=== PATIENT | male | born 1945 | race Caucasian/White ===

== ENCOUNTER 2018-12-11 14:33 | Outpatient (CLI) | payer OTHER ==
[2018-12-11 15:53] LABS: BASOPHILS # (AUTO) 0.04 x10^3/uL (0-0.1); BASOPHILS % (AUTO) 1 % (0-1); EOSINOPHILS # (AUTO) 0.11 x10^3/uL (0-0.4); EOSINOPHILS % (AUTO) 2 % (1-7); LYMPHOCYTES # (AUTO) 0.88 x10^3/uL (1-3.4); LYMPHOCYTES % (AUTO) 14 % (22-44); MD NO; MEAN CORPUSCULAR HEMOGLOBIN 34.2 pg (27.5-34.5); MEAN CORPUSCULAR HGB CONC 33.4 g/dL (33.2-36.2); MEAN CORPUSCULAR VOLUME 102.3 fL (81-97); MEAN PLATELET VOLUME 7.3 fL (7.4-10.4); MONOCYTES # (AUTO) 0.54 x10^3/uL (0.2-0.8); MONOCYTES % (AUTO) 9 % (2-9); NEUTROPHILS % (AUTO) 75 % (42-75); PLATELET COUNT 221 x10^3/uL (130-400); RED BLOOD COUNT 4.44 x10^6/uL (4.38-5.82); RED CELL DISTRIBUTION WIDTH 14.1 % (9.4-14.8)
[2018-12-11 16:03] LABS: ALBUMIN 4.3 g/dL (3.4-5.0); ANION GAP 9 mmol/L (5-15); CHLORIDE 106 mmol/L (98-107)
[2018-12-11 16:08] LABS: ALANINE AMINOTRANSFERASE 38 U/L (12-78); ALKALINE PHOSPHATASE 69 U/L (45-117); BILIRUBIN,TOTAL 0.5 mg/dL (0.2-1.0); CREATININE 1.38 mg/dL (0.7-1.3); TOTAL PROTEIN 7.7 g/dL (6.4-8.2)
[2018-12-11 16:32] LABS: INTERNATIONAL NORMALIZED RATIO 0.94 (0.93-1.1); PROTHROMBIN TIME 9.9 Seconds (9.6-11.5)
[2018-12-12] MEDS ORDERED: HYDR12.517 PO (06:31)
[2018-12-12] MEDS ORDERED: RAMI2.5C2 PO (06:31)
[2018-12-12] MEDS ORDERED: MULT1TAB60 PO (06:31)
[2018-12-12] MEDS ORDERED: ROSU5TAB PO (06:31)
== END 2018-12-11 23:59 | disposition home or self-care (01) ==
LOC: STAR 14:33
PROVIDERS: ATTEND Orthopaedic Surgery
DX: Z01.818 Encounter for other preprocedural examination (principal); M25.551 Pain in right hip; R94.31 Abnormal electrocardiogram [ECG] [EKG]
CPT/HCPCS: 36415; 80053; 83036; 85025; 85610; 85730; 87081; 93005

== ENCOUNTER 2018-12-18 05:17 | Inpatient (IN) | payer OTHER, MEDICARE ==
[~2018-12-18] VITALS: Ht 182.9 cm; Wt 84.0 kg
[~2018-12-18 05:17] MED LIST: HYDR12.517 PO; MULT1TAB60 PO; RAMI2.5C2 PO; ROSU5TAB PO
[2018-12-18] MEDS ORDERED: LACTATED RINGERS 1,000 ML IV SCH (05:58)
[2018-12-18] MEDS ORDERED: HYDR-3240 PO (05:58)
[2018-12-18] MEDS ORDERED: GABAPENTIN 300 MG CAPSULE PO ONE (06:00)
[2018-12-18] MEDS ORDERED: ACETAMINOPHEN 500 MG TABLET PO ONE (06:00)
[2018-12-18] MEDS ORDERED: SODIUM CHLORIDE 0.9% 50 ML ONE (06:29)
[2018-12-18] MEDS ORDERED: TRANEXAMIC ACID 100 MG/ML, 10ML ONE ×2 (06:29)
[2018-12-18] MEDS ORDERED: ROPIvacaine/PF 0.5%, 30 ML ONE (06:29)
[2018-12-18] MEDS ORDERED: KETOROLAC 60 MG/2 ML ONE (06:29)
[2018-12-18] MEDS ORDERED: VANCOMYCIN 1,000 MG ONE (06:29)
[2018-12-18] MEDS ORDERED: EPINEPHRINE 1 MG/ML, 1ML ONE (06:30)
[2018-12-18] MEDS ORDERED: KETAMINE 10 MG/ML, 20ML ONE (06:35)
[2018-12-18] MEDS ORDERED: MAGNESIUM SULFATE 1 GM/2 ML ONE (06:35)
[2018-12-18] MEDS ORDERED: LIDOCAINE 1%, 20ML ONE (06:36)
[2018-12-18] MEDS ORDERED: FENTANYL PF 250 MCG/5ML ONE ×2 (06:39→08:31)
[2018-12-18] MEDS ORDERED: DEXAMETHASONE 4 MG/ML, 1ML ONE ×2 (06:39→08:31)
[2018-12-18] MEDS ORDERED: MIDAZOLAM 1 MG/ML, 2ML ONE ×2 (06:39→08:31)
[2018-12-18] MEDS ORDERED: LIDOCAINE 2% 100MG/5ML SYRINGE ONE (06:39)
[2018-12-18] MEDS ORDERED: ROCURONIUM 10MG/ML,5ML ONE ×2 (06:39→08:31)
[2018-12-18] MEDS ORDERED: GLYCOPYRROLATE 0.2MG/1ML, 5ML ONE ×2 (06:39→08:31)
[2018-12-18] MEDS ORDERED: NS + 20MEQ KCL 1,000 ML IV SCH (06:41)
[2018-12-18] MEDS ORDERED: METOPROLOL 1 MG/ML, 5ML ONE (06:41)
[2018-12-18] MEDS ORDERED: PHENYLEPHRINE 10 MG/ML ONE (06:46)
[2018-12-18] MEDS ORDERED: ZOLPIDEM 5MG TABLET PO PRN (07:00)
[2018-12-18] MEDS ORDERED: ONDANSETRON 4 MG TABLET PO PRN (07:00)
[2018-12-18] MEDS ORDERED: DIPHENHYDRAMINE 50 MG CAPSULE PO PRN (07:00)
[2018-12-18] MEDS ORDERED: HYDROcodone/APAP 5/325 TABLET PO PRN (07:00)
[2018-12-18] MEDS ORDERED: SCOPOLAMINE PATCH, 1.5MG PATCH.TD72 TD ONE (07:00)
[2018-12-18] MEDS ORDERED: LABETALOL 5MG/ML, 20ML IV PRN (07:00)
[2018-12-18] MEDS ORDERED: MIDAZOLAM 1 MG/ML, 2ML IV PRN (07:00)
[2018-12-18] MEDS ORDERED: OXYcodone 5 MG/5 ML ORAL.SOL UDC PO PRN (07:00)
[2018-12-18] MEDS ORDERED: METOCLOPRAMIDE 5 MG/ML, 2ML IV PRN (07:00)
[2018-12-18] MEDS ORDERED: OXYcodone IR 5MG TABLET PO PRN (07:00)
[2018-12-18] MEDS ORDERED: SENNA/DOCUSATE TABLET PO PRN (07:00)
[2018-12-18] MEDS ORDERED: ONDANSETRON 2MG/ML, 2ML IVPush PRN (07:00)
[2018-12-18] MEDS ORDERED: KETOROLAC 30 MG/1 ML IV PRN (07:00)
[2018-12-18] MEDS ORDERED: HYDROcodone/APAP 7.5-325MG/15ML UDC PO PRN (07:00)
[2018-12-18] MEDS ORDERED: BISACODYL 10 MG SUPP PR PRN (07:00)
[2018-12-18] MEDS ORDERED: MEPERIDINE/PF 25MG/0.5ML IVPush PRN (07:00)
[2018-12-18] MEDS ORDERED: HYDROmorphone 1 MG/ML, 1ML INJ IV PRN (07:00)
[2018-12-18] MEDS ORDERED: MAGNESIUM HYDROXIDE 8%, 30ML UDC PO PRN (07:00)
[2018-12-18] MEDS ORDERED: ACETAMINOPHEN 650 MG/20.3 ML UDC PO PRN (07:00)
[2018-12-18] MEDS ORDERED: ONDANSETRON 2MG/ML, 2ML IV PRN (07:00)
[2018-12-18] MEDS ORDERED: PROPOFOL 10 MG/ML, 20ML ONE (08:31)
[2018-12-18] MEDS ORDERED: FENTANYL PF 100 MCG/2ML ONE (08:35)
[2018-12-18] MEDS: FENTANYL PF 100 MCG/2ML IV PRN ×3 (08:39→08:50)
[2018-12-18] MEDS ORDERED: DOCUSATE 100 MG CAPSULE PO SCH (09:00)
[2018-12-18] MEDS ORDERED: HYDROCHLOROTHIAZIDE 12.5 MG CAPSULE PO SCH (09:00)
[2018-12-18] MEDS ORDERED: RAMIPRIL 2.5 MG CAPSULE PO SCH (09:00)
[2018-12-18 09:57] VITALS: BP 134/77
[2018-12-18] MEDS ORDERED: CEFAZOLIN PMX 2GM/50ML 50 ML IVPB SCH (10:00)
[2018-12-18] MEDS ORDERED: [UNRECOGNIZED DRUG - REMARK] MC SCH (10:00)
[2018-12-18] MEDS ORDERED: [UNRECOGNIZED DRUG - REMARK] MC SCH (10:00)
[2018-12-18 15:36] VITALS: BP 122/74
[2018-12-18] MEDS ORDERED: ASPIRIN 81 MG TABLET EC PO SCH (18:00)
[2018-12-18] MEDS ORDERED: ROSUVASTATIN CALCIUM PO SCH (21:00)
[2018-12-19] MEDS ORDERED: DEXAMETHASONE 4 MG/ML, 1ML IVPush SCH (06:00)
== END 2018-12-18 15:39 | disposition home or self-care (01) | DRG 470 ==
LOC: ORIP 05:17 → 4NOR 09:24 → DCLOUNGE 15:30
PROVIDERS: ADMIT Orthopaedic Surgery; ATTEND Orthopaedic Surgery
PROC: 0SR906A Replacement of Right Hip Joint with Oxidized Zirconium on Polyethylene Synthetic Substitute, Uncemented, Open Approach (ICD-10-PCS; principal; 2018-12-18 07:00)
DX: M16.11 Unilateral primary osteoarthritis, right hip (principal); I10 Essential (primary) hypertension
CPT/HCPCS: 72170; 73501; 76000; J3490; C1713; J0171; J0690; J1100; J1885; J2250; J2704; J2795; J3010; J3370; J3475; C1776; J2370; J7120

== ENCOUNTER → 2019-06-14 | Outpatient (CLI) | payer MEDICARE, OTHER ==
[~2019-06-14] MED LIST changes: +ASPI-496 PO; +HYDR-3240 PO; +RAMI10CA59 PO; +ZOLP10TA PO
[2019-06-14 09:52] LABS: BASOPHILS # (AUTO) 0.02 x10^3/uL (0-0.1); BASOPHILS % (AUTO) 1 % (0-1); EOSINOPHILS % (AUTO) 2 % (1-7); LYMPHOCYTES # (AUTO) 0.81 x10^3/uL (1-3.4); LYMPHOCYTES % (AUTO) 16 % (22-44); MD NO; MEAN CORPUSCULAR HEMOGLOBIN 33.4 pg (27.5-34.5); MEAN CORPUSCULAR HGB CONC 33.5 g/dL (33.2-36.2); MEAN CORPUSCULAR VOLUME 99.6 fL (81-97); MEAN PLATELET VOLUME 7.1 fL (7.4-10.4); MONOCYTES % (AUTO) 10 % (2-9); NEUTROPHILS % (AUTO) 71 % (42-75); PLATELET COUNT 260 x10^3/uL (130-400); RED BLOOD COUNT 4.43 x10^6/uL (4.38-5.82); RED CELL DISTRIBUTION WIDTH 14.5 % (9.4-14.8)
[2019-06-14 10:03] LABS: ALANINE AMINOTRANSFERASE 31 U/L (12-78); ALBUMIN 4.1 g/dL (3.4-5.0); ANION GAP 4 mmol/L (5-15); CALCIUM 9.4 mg/dL (8.5-10.1); CHLORIDE 107 mmol/L (98-107); CREATININE 1.11 mg/dL (0.7-1.3)
[2019-06-14 10:11] LABS: ALKALINE PHOSPHATASE 77 U/L (45-117); BILIRUBIN,TOTAL 0.8 mg/dL (0.2-1.0); TOTAL PROTEIN 7.9 g/dL (6.4-8.2)
[2019-06-14 10:16] LABS: INTERNATIONAL NORMALIZED RATIO 0.93 (0.93-1.1); PROTHROMBIN TIME 9.8 Seconds (9.6-11.5)
== END | disposition home or self-care (01) ==
LOC: STAR 08:24
PROVIDERS: ATTEND Orthopaedic Surgery
DX: Z01.818 Encounter for other preprocedural examination (principal); M16.12 Unilateral primary osteoarthritis, left hip; Z96.641 Presence of right artificial hip joint
CPT/HCPCS: 36415; 80053; 83036; 85025; 85610; 85730; 87081; 93005

== ENCOUNTER 2019-06-23 07:54 | Inpatient (IN) | payer OTHER, MEDICARE ==
[~2019-06-23] VITALS: Ht 182.9 cm; Wt 85.6 kg
[~2019-06-23 07:54] MED LIST changes: +EPINEPHRINE 1 MG/ML, 1ML ONE; +KETOROLAC 60 MG/2 ML ONE; +SODIUM CHLORIDE 0.9% 50 ML ONE; +TRANEXAMIC ACID 100 MG/ML, 10ML ONE; +VANCOMYCIN 1,000 MG ONE
[2019-06-23] MEDS ORDERED: FENTANYL PF 250 MCG/5ML ONE (08:16)
[2019-06-23] MEDS ORDERED: MIDAZOLAM 1 MG/ML, 2ML ONE (08:16)
[2019-06-23] MEDS ORDERED: ROCURONIUM 10MG/ML,5ML ONE (08:17)
[2019-06-23] MEDS ORDERED: PROPOFOL 10 MG/ML, 20ML ONE (08:19)
[2019-06-23] MEDS ORDERED: LIDOCAINE-MPF 2% ,5ML ONE ×2 (08:20)
[2019-06-23] MEDS ORDERED: CEFAZOLIN 1,000 MG ONE ×2 (08:23)
[2019-06-23] MEDS ORDERED: ONDANSETRON 2MG/ML, 2ML ONE (08:23)
[2019-06-23 08:37] VITALS: BP 152/80
[2019-06-23] MEDS ORDERED: LACTATED RINGERS 1,000 ML IV SCH (08:41)
[2019-06-23] MEDS ORDERED: GABAPENTIN 300 MG CAPSULE PO ONE (09:00)
[2019-06-23] MEDS ORDERED: HYDROCHLOROTHIAZIDE 12.5 MG CAPSULE PO SCH (09:00)
[2019-06-23] MEDS ORDERED: hydrALAzine 20 MG/ML, 1ML IV PRN (09:00)
[2019-06-23] MEDS ORDERED: OXYcodone 5 MG/5 ML ORAL.SOL UDC PO PRN (09:00)
[2019-06-23] MEDS ORDERED: LORazepam 2 MG/ML, 1ML IVPush PRN (09:00)
[2019-06-23] MEDS ORDERED: LABETALOL 5MG/ML, 20ML IV PRN (09:00)
[2019-06-23] MEDS ORDERED: DIPHENHYDRAMINE 50 MG/ML, 1ML IVPush PRN (09:00)
[2019-06-23] MEDS ORDERED: RAMIPRIL 5 MG CAP PO SCH (09:00)
[2019-06-23] MEDS ORDERED: HYDROmorphone 2 MG/ML, 1ML IVPush PRN (09:00)
[2019-06-23] MEDS ORDERED: ONDANSETRON 2MG/ML, 2ML IV PRN ×2 (09:00→09:30)
[2019-06-23] MEDS ORDERED: ZOLPIDEM 10MG TABLET PO PRN (09:00)
[2019-06-23] MEDS ORDERED: ACETAMINOPHEN 500 MG TABLET PO ONE (09:00)
[2019-06-23] MEDS ORDERED: GABAPENTIN 300 MG CAPSULE ONE (09:11)
[2019-06-23] MEDS ORDERED: ACETAMINOPHEN 500 MG TABLET ONE (09:11)
[2019-06-23] MEDS ORDERED: NEOSTIGMINE 1 MG/ML, 10ML ONE (09:25)
[2019-06-23] MEDS ORDERED: GLYCOPYRROLATE 0.2MG/1ML, 5ML ONE (09:25)
[2019-06-23] MEDS ORDERED: HYDROcodone/APAP 5/325 TABLET PO PRN (09:30)
[2019-06-23] MEDS ORDERED: ZOLPIDEM 5MG TABLET PO PRN (09:30)
[2019-06-23] MEDS ORDERED: SCOPOLAMINE PATCH, 1.5MG PATCH.TD72 TD ONE (09:30)
[2019-06-23] MEDS ORDERED: DIPHENHYDRAMINE 50 MG CAPSULE PO PRN (09:30)
[2019-06-23] MEDS ORDERED: MAGNESIUM HYDROXIDE 8%, 30ML UDC PO PRN (09:30)
[2019-06-23] MEDS ORDERED: ONDANSETRON 4 MG TABLET PO PRN (09:30)
[2019-06-23] MEDS ORDERED: OXYcodone IR 5MG TABLET PO PRN (09:30)
[2019-06-23] MEDS ORDERED: ACETAMINOPHEN 650 MG/20.3 ML UDC PO PRN (09:30)
[2019-06-23] MEDS ORDERED: BISACODYL 10 MG SUPP PR PRN (09:30)
[2019-06-23] MEDS ORDERED: SENNA/DOCUSATE TABLET PO PRN (09:30)
[2019-06-23] MEDS ORDERED: OXYcodone 5 MG/5 ML ORAL.SOL UDC ONE (10:32)
[2019-06-23] MEDS ORDERED: FENTANYL PF 100 MCG/2ML ONE (10:32)
[2019-06-23] MEDS: FENTANYL PF 100 MCG/2ML IV PRN ×2 (10:35→10:40)
[2019-06-23] MEDS ORDERED: ROPIvacaine/PF 0.5%, 30 ML ONE (10:40)
[2019-06-23] MEDS ORDERED: MEPERIDINE/PF 25MG/ML,1ML ONE ×2 (10:49→10:54)
[2019-06-23] MEDS: MEPERIDINE/PF 25MG/ML,1ML IVPush PRN ×2 (10:52→11:00)
[2019-06-23] MEDS ORDERED: TRANEXAMIC ACID 1,000 MG in SODIUM CHLORIDE 0.9% 100 ML IV ONE (11:00)
[2019-06-23] MEDS ORDERED: NS + 20MEQ KCL 1,000 ML IV SCH (12:40)
[2019-06-23] MEDS ORDERED: CEFAZOLIN PMX 2GM/50ML 50 ML IVPB SCH (16:00)
[2019-06-23] MEDS ORDERED: OXYC5TAB3 PO ×2 (16:35)
[2019-06-23] MEDS ORDERED: TRAM100T13 PO (16:36)
[2019-06-23] MEDS ORDERED: MELO7.5T31 PO (16:38)
[2019-06-23] MEDS ORDERED: ASPIRIN 81 MG TABLET EC PO SCH (18:00)
[2019-06-23] MEDS ORDERED: DOCUSATE 100 MG CAPSULE PO SCH (21:00)
[2019-06-24] MEDS ORDERED: DEXAMETHASONE 4 MG/ML, 1ML IVPush SCH (06:00)
== END 2019-06-23 16:57 | disposition home or self-care (01) | DRG 470 ==
LOC: ORIP 07:54 → 4NE 12:29
PROVIDERS: ADMIT Orthopaedic Surgery; ATTEND Orthopaedic Surgery
PROC: 0SRB06A Replacement of Left Hip Joint with Oxidized Zirconium on Polyethylene Synthetic Substitute, Uncemented, Open Approach (ICD-10-PCS; principal; 2019-06-23 10:00)
DX: M16.12 Unilateral primary osteoarthritis, left hip (principal); I10 Essential (primary) hypertension; I25.2 Old myocardial infarction; I25.10 Atherosclerotic heart disease of native coronary artery without angina pectoris; Z82.61 Family history of arthritis; Z82.49 Family history of ischemic heart disease and other diseases of the circulatory system
CPT/HCPCS: 73501; 76000; J3490; C1713; G0378; J0171; J0690; J1885; J2250; J2405; J2704; J2710; J2795; J3010; J3370; C1776; J2175; J7120